=== PATIENT | male | born 1995 | race Two or more races ===

== ENCOUNTER 2017-04-12 19:17 | Emergency (ER) | payer OTHER ==
--- NOTE | 2017-04-12 19:33 | PDOC ---
Rapid Medical Evaluation Chief Complaint: Oral Ulcers Time Seen by Provider: 04/12/17 19:31 Medical Evaluation: Allergies Allergy/AdvReac Type Severity Reaction Status Date / Time No Known Allergies Allergy Verified 07/25/14 23:02 04/12/17 19:36 I have performed a brief in-person evaluation of this patient. The patient presents with a chief complaint of: sores in mouth with throat pain x 3 days . No oral sex, no hx of herpes , no new dental work or oral piercings. Pertinent physical exam findings: gingival ulceration noted to lower gingiva with some pharynx erythema I have ordered the following: rapid strep, Ibuprofen 400mg given The patient will proceed to the ED for further evaluation. 04/12/17 19:40
[2017-04-12] MEDS ORDERED: IBUPROFEN 400 MG TABLET (FP) PO ONE (19:39)
[2017-04-12 19:48] VITALS: BP 141/77; PULSE 67; TEMP 98.7; BMI 21.1
--- NOTE | 2017-04-12 20:50 | PDOC ---
*Physical Exam - Vital Signs Last Vital Signs Temp Pulse Resp BP Pulse Ox 98.7 F 67 16 141/77 99 04/12/17 19:38 04/12/17 19:38 04/12/17 19:38 04/12/17 19:38 04/12/17 19:38 - Physical Exam Comments: 04/12/17 20:49 The patient was examined by [PRO Alcaraz] under my direct supervision. I personally evaluated the patient. I concur with the above findings and the plan of care. ED Treatment Course - Medications Given in the ED: ED Medications Discontinued Medications Generic Name Dose Route Start Last Admin Trade Name Freq PRN Reason Stop Dose Admin Ibuprofen 400 mg 04/12/17 19:39 04/12/17 19:42 Motrin - PO 04/12/17 19:40 400 mg ONCE ONE Administration *DC/Admit/Observation/Transfer - Referrals Referrals: Mehrdad Waddell [Primary Care Provider] - - Patient Instructions - Post Discharge Activity
--- NOTE | 2017-04-12 21:02 | PDOC ---
History of Present Illness - General Chief Complaint: Oral Ulcers Stated Complaint: PAIN Time Seen by Provider: 04/12/17 19:31 History Source: Patient Exam Limitations: No Limitations - History of Present Illness Initial Comments: 04/12/17 20:51 Patient is a 21-year-old male with no past medical history who presents to the emergency department tonight complaining of gingival pain for 3 days. Patient denies recent dental work. Patient had multiple mouth piercings he states that the mother for multiple years. He is tried Tylenol for his pain with little relief. Denies fevers, sore throat, nausea, vomiting and diarrhea. Pt. smokes 3-4 cigarettes daily Past History - Travel Traveled outside of the country in the last 30 days: No Close contact w/someone who was outside of country & ill: No - Past Medical History Allergies/Adverse Reactions: Allergies Allergy/AdvReac Type Severity Reaction Status Date / Time No Known Allergies Allergy Verified 04/12/17 19:38 Home Medications: Ambulatory Orders Methocarbamol [Robaxin -] 500 mg PO BID #14 tablet 07/26/14 Naproxen [Naprosyn -] 500 mg PO BID #14 tablet 07/26/14 Amoxicillin - [Amoxicillin 500mg Capsule -] 500 mg PO BID #14 capsule 04/12/17 Ibuprofen 800 mg PO TID #30 tablet 04/12/17 - Immunization History Immunization Up to Date: Yes - Suicide/Smoking/Psychosocial Hx Smoking History: Current every day smoker Number of Cigarettes Smoked Daily: 5 Information on smoking cessation initiated: No Hx Alcohol Use: No Drug/Substance Use Hx: No Review of Systems - Review of Systems Able to Perform ROS?: Yes Comments:: 04/12/17 20:51 CONSTITUTIONAL: Absent: fever, chills, diaphoresis, generalized weakness, malaise, loss of appetite HEENT: Present: mouth pain Absent: rhinorrhea, nasal congestion, throat pain, throat swelling, difficulty swallowing, mouth swelling, ear pain, eye pain, visual Changes CARDIOVASCULAR: Absent: chest pain, loss of consciousness, palpitations, irregular heart rate, peripheral edema RESPIRATORY: Absent: cough, shortness of breath, dyspnea with exertion, orthopnea, wheezing, stridor, hemoptysis GASTROINTESTINAL: Absent: abdominal pain, abdominal distension, nausea, vomiting, diarrhea, constipation, melena, hematochezia GENITOURINARY: Absent: dysuria, frequency, urgency, hesitancy, hematuria, flank pain, genital pain MUSCULOSKELETAL: Absent: myalgia, arthralgia, joint swelling SKIN: Absent: rash, itching, pallor HEMATOLOGIC/IMMUNOLOGIC: Absent: easy bleeding, easy bruising, lymphadenopathy, frequent infections ENDOCRINE: Absent: unexplained weight gain, unexplained weight loss, heat intolerance, cold intolerance NEUROLOGIC: Absent: headache, focal weakness or paresthesias, dizziness, unsteady gait, seizure, mental status changes, bladder or bowel incontinence PSYCHIATRIC: Absent: anxiety, depression, suicidal or homicidal ideation, hallucinations. Is the patient limited Pashto proficient: No *Physical Exam - Vital Signs Last Vital Signs Temp Pulse Resp BP Pulse Ox 98.7 F 67 16 141/77 99 04/12/17 19:38 04/12/17 19:38 04/12/17 19:38 04/12/17 19:38 04/12/17 19:38 - Physical Exam Comments: 04/12/17 20:51 GENERAL: Well developed, well nourished. Awake and alert. No acute distress. HEENT: Normocephalic, atraumatic. PERRLA, EOMI. No conjunctival pallor. Sclera are non- icteric. Moist mucous membranes. Oral ulcer present behind lip piercing. Oropharynx with posterior erythema, 2+ tonsils, no uvular deviation NECK: Supple. Full ROM. No JVD. Carotid pulses 2+ and symmetric, without bruits. No thyromegaly. LAD on the R. CARDIOVASCULAR: Regular rate and rhythm. No murmurs, rubs, or gallops. Distal pulses are 2+ and symmetric. PULMONARY: No evidence of respiratory distress. Lungs clear to auscultation bilaterally. No wheezing, rales or rhonchi. EXTREMITIES: No cyanosis. No clubbing. No edema. No calf tenderness. SKIN: Warm and dry. Normal capillary refill. No rashes. No jaundice. NEUROLOGICAL: Alert, awake, appropriate. Cranial nerves 2-12 intact. No deficits to light touch and temperature in face, upper extremities and lower extremities. No motor deficits in the in face, upper extremities and lower extremities. Normoreflexic in the upper and lower extremities. Normal speech. Toes are down- going bilaterally. Gait is normal without ataxia. PSYCHIATRIC: Cooperative. Good eye contact. Appropriate mood and affect. ED Treatment Course - Medications Given in the ED: ED Medications Discontinued Medications Generic Name Dose Route Start Last Admin Trade Name Maria Luisa PRN Reason Stop Dose Admin Ibuprofen 400 mg 04/12/17 19:39 04/12/17 19:42 Motrin - PO 04/12/17 19:40 400 mg ONCE ONE Administration Medical Decision Making - Medical Decision Making 04/12/17 21:11 Pt. is a 21 y/o M with no PMH who presents with 3 days of oral ulcers and tosilar erythema. Rapid strep obtained in triage from [facility]. Waiting for results. Most likely will treat with amox at this time given erythema, gingival disease and r LAD. 04/12/17 21:38 Strep is negative at this time. However given dental pain and sores will treat at this time. Will d/c the patient home. *DC/Admit/Observation/Transfer Diagnosis at time of Disposition: Canker sore, Gingival disease - Discharge Dispostion Disposition: HOME Condition at time of disposition: Good Admit: No - Prescriptions Prescriptions: Amoxicillin - [Amoxicillin 500mg Capsule -] 500 mg PO BID #14 capsule Ibuprofen 800 mg PO TID #30 tablet - Referrals Referrals: Mehrdad Waddell [Primary Care Provider] - - Patient Instructions Printed Discharge Instructions: DI for Gingivitis Additional Instructions: You have a canker sore and gum disease. Please take amoxicillin 500 mg twice a day. Please throw away your toothbrush after treatment. You may also use warm water gargles to help with your pain. He may also use Motrin 800 mg 3 times a day. Please follow up with her dentist this week. Return to the emergency department if he had worsening pain, difficulty swallowing, changes in the way speak, increasing weakness, or any changes in her symptoms. - Post Discharge Activity
== END 2017-04-12 22:37 | disposition home or self-care (01) ==
LOC: JER 19:17
DX: K05.5 Other periodontal diseases (principal); A69.0 Necrotizing ulcerative stomatitis
CPT/HCPCS: 87070; 87430; 99282-25